=== PATIENT | male | born 1955 | race Caucasian/White ===

== ENCOUNTER 2023-02-18 08:42 | Outpatient (CLI) | payer OTHER | END 2023-02-18 23:59 | disposition home or self-care (01) | LOC: RAD 08:42 | PROVIDERS: ATTEND Family Medicine | DX: S76.311A Strain of muscle, fascia and tendon of the posterior muscle group at thigh level, right thigh, initial encounter (principal); M79.89 Other specified soft tissue disorders; X58.XXXA Exposure to other specified factors, initial encounter; Y93.89 Activity, other specified; Y92.89 Other specified places as the place of occurrence of the external cause; Y99.8 Other external cause status | CPT/HCPCS: 73718 ==

== ENCOUNTER 2023-05-13 08:37 | Outpatient (CLI) | payer OTHER | END 2023-05-13 23:59 | disposition home or self-care (01) | LOC: RAD 08:37 | PROVIDERS: ATTEND Family Medicine Sports Medicine | DX: S76.311A Strain of muscle, fascia and tendon of the posterior muscle group at thigh level, right thigh, initial encounter (principal); M51.16 Intervertebral disc disorders with radiculopathy, lumbar region; M48.07 Spinal stenosis, lumbosacral region; M51.27 Other intervertebral disc displacement, lumbosacral region; M21.379 Foot drop, unspecified foot; X58.XXXA Exposure to other specified factors, initial encounter; Y93.89 Activity, other specified; Y92.89 Other specified places as the place of occurrence of the external cause; Y99.8 Other external cause status | CPT/HCPCS: 72148 ==

== ENCOUNTER 2024-02-13 07:31 | Inpatient (IN) | payer OTHER ==
[~2024-02-13] VITALS: Ht 177.8 cm; Wt 74.8 kg
[2024-02-13 07:54] LABS: RED BLOOD COUNT 3.91 X10'6 (4.70-6.10)
[2024-02-13 07:56] LABS: HEMATOCRIT 35.6 % (42.0-52.0); HEMOGLOBIN 12.6 g/dl (14.0-17.9); MEAN CORPUSCULAR HEMOGLOBIN 32.2 PG (27.0-31.0); MEAN CORPUSCULAR HGB CONC 35.3 g/dL (33.0-36.5); MEAN PLATELET VOLUME 7.5 FL (7.4-10.4); PLATELET COUNT 435 X10'3 (140-440); WHITE BLOOD COUNT 7.9 X10'3 (4.5-11.0)
[2024-02-13 08:10] LABS: ANISOCYTOSIS 1+; PLATELET ESTIMATE NORMAL; TOTAL CELLS COUNTED 100
[2024-02-13 08:15] LABS: ALBUMIN 2.7 G/DL (3.4-5.0); ANION GAP 12 (8-16); BLOOD UREA NITROGEN 25 MG/DL (7-18); CHLORIDE 83 MMOL/L (99-107); PRO BRAIN NATRIURETIC PEPTIDE 92 PG/ML (0-125); TOTAL CARBON DIOXIDE 25.4 MMOL/L (24-32)
[2024-02-13 08:29] LABS: ALANINE AMINOTRANSFERASE 86 U/L (12-78); ALBUMIN/GLOBULIN RATIO 0.7 (1.1-1.5); ALKALINE PHOSPHATASE 292 IU/L (46-116); ASPARTATE AMINO TRANSFERASE 93 U/L (10-37); BUN/CREATININE RATIO 15.2 (10.0-20.0); CREATININE 1.65 MG/DL (0.60-1.10); GLUCOSE 115 MG/DL (70-104); TOTAL PROTEIN 6.8 G/DL (6.4-8.2); eCRCL 45 ML/MIN; eGFR 42 ML/MIN
[2024-02-13 08:34] LABS: SODIUM 120 MMOL/L (135-145)
[2024-02-13] MEDS ORDERED: HYDR12.55 PO (08:49)
[2024-02-13] MEDS ORDERED: LISI40TA13 PO (08:49)
[2024-02-13] MEDS ORDERED: AMLO10TA13 PO (08:49)
[2024-02-13] MEDS: normal saline 1000ml 1,000 ML IV ONE (09:44)
[2024-02-13] MEDS ORDERED: magnesium 2GM in 50ml NS 50 ML IV PRN ×2 (09:50→18:25)
[2024-02-13] MEDS ORDERED: magnesium Cl slow-release 64mg tablet PO PRN ×2 (09:50→18:25)
[2024-02-13] MEDS ORDERED: potassium Cl 20 mEq SR tablet PO PRN ×3 (09:50→18:25)
[2024-02-13] MEDS ORDERED: magnesium 4gm in 100ml NS 100 ML IV PRN ×2 (09:50→18:25)
[2024-02-13] MEDS: normal saline 1000ml 1,000 ML IV STA (09:57)
[2024-02-13 11:11] LABS: MAGNESIUM 2.7 MG/DL (1.5-2.4); PHOSPHORUS 4.1 MG/DL (2.3-4.5)
[2024-02-13] MEDS: potassium Cl 40MEQ/1/2NS 520ml 520 ML IV PRN (11:59)
[2024-02-13 12:10] LABS: URINE AMPHETAMINE SCREEN NEGATIVE (Neg); URINE BARBITUATE SCREEN NEGATIVE (Neg); URINE BENZODIAZEPINES SCREEN NEGATIVE (Neg); URINE CANNABINOID SCREEN NEGATIVE (Neg); URINE COCAINE SCREEN NEGATIVE (Neg); URINE METHADONE SCREEN NEGATIVE (Neg); URINE PHENCYCLIDINE SCREEN NEGATIVE (Neg)
[2024-02-13 12:37] LABS: INR 1.4 INR
[2024-02-13] MEDS: CefTRIAXone 2gm/D5W 50ml BAG 50 ML IV ONE (18:14)
[2024-02-13] MEDS ORDERED: magnesium hydroxide 30ml (MOM) UD suspension PO PRN (18:25)
[2024-02-13] MEDS ORDERED: mag hydrox/Alum hydrox/simeth 30ml oral suspension PO PRN (18:25)
[2024-02-13 19:36] LABS: ALBUMIN 2.2 G/DL (3.4-5.0); ANION GAP 11 (8-16); BLOOD UREA NITROGEN 24 MG/DL (7-18); CALCIUM 8.5 MG/DL (8.5-10.1); CHLORIDE 89 MMOL/L (99-107); SODIUM 123 MMOL/L (135-145); TOTAL CARBON DIOXIDE 23.4 MMOL/L (24-32)
[2024-02-13 19:51] LABS: CREATININE 1.33 MG/DL (0.60-1.10); GLUCOSE 85 MG/DL (70-104); POTASSIUM 3.5 MMOL/L (3.5-5.1); eCRCL 56 ML/MIN; eGFR 54 ML/MIN
[2024-02-13] MEDS: K and/or MAG REPLACEMENT MC SCH ×2 (20:00)
[2024-02-13 21:30] VITALS: BP 114/50; PULSE 64; RESP 18; TEMP 96.8; O2SAT 100
[2024-02-13] MEDS: normal saline 1000ml 1,000 ML IV SCH (22:00)
[2024-02-13 23:36] LABS: ALBUMIN 2.2 G/DL (3.4-5.0); ANION GAP 10 (8-16); BLOOD UREA NITROGEN 24 MG/DL (7-18); CALCIUM 8.4 MG/DL (8.5-10.1); CHLORIDE 91 MMOL/L (99-107); SODIUM 124 MMOL/L (135-145); TOTAL CARBON DIOXIDE 22.9 MMOL/L (24-32)
[2024-02-13 23:43] LABS: BUN/CREATININE RATIO 20.3 (10.0-20.0); CREATININE 1.18 MG/DL (0.60-1.10); GLUCOSE 79 MG/DL (70-104); eCRCL 64 ML/MIN; eGFR 62 ML/MIN
[2024-02-14] VITALS (20 sets, daily range): BP systolic 108–135; BP diastolic 45–71; PULSE 62–87; RESP 12–18; TEMP 96.7–98; O2SAT 95–100
[2024-02-14] MEDS: potassium Cl 40MEQ/1/2NS 520ml 520 ML IV PRN (00:19)
[2024-02-14 07:02] LABS: BASOPHILS % (AUTO) 0.2 % (0-1); EOSINOPHILS # (AUTO) 0.1 X10'3 (0-0.9); EOSINOPHILS % (AUTO) 0.7 % (0-6); HEMATOCRIT 31.6 % (42.0-52.0); HEMOGLOBIN 11.4 g/dl (14.0-17.9); LYMPHOCYTES # (AUTO) 0.4 X10'3 (1.1-4.8); LYMPHOCYTES % (AUTO) 4.5 % (21-51); MEAN CORPUSCULAR HEMOGLOBIN 32.7 PG (27.0-31.0); MEAN CORPUSCULAR VOLUME 90.8 FL (78-98); MEAN PLATELET VOLUME 7.5 FL (7.4-10.4); MONOCYTES # (AUTO) 1.3 X10'3 (0-0.9); MONOCYTES % (AUTO) 16.3 % (2-12); NEUTROPHILS # (AUTO) 6.4 X10'3 (1.8-7.7); NEUTROPHILS % (AUTO) 78.3 % (42-75); PLATELET COUNT 318 X10'3 (140-440); RED BLOOD COUNT 3.48 X10'6 (4.70-6.10); RED CELL DISTRIBUTION WIDTH 17.1 % (11.5-14.5); WHITE BLOOD COUNT 8.1 X10'3 (4.5-11.0)
[2024-02-14 07:13] LABS: APTT 28 SECONDS (22-32); PROTHROMBIN TIME 19.9 SECONDS (9.0-12.0)
[2024-02-14 07:24] LABS: ALBUMIN 2.1 G/DL (3.4-5.0); ALKALINE PHOSPHATASE 232 IU/L (46-116); ANION GAP 8 (8-16); BLOOD UREA NITROGEN 21 MG/DL (7-18); CALCIUM 8.2 MG/DL (8.5-10.1); CHLORIDE 94 MMOL/L (99-107); SODIUM 126 MMOL/L (135-145); TOTAL CARBON DIOXIDE 24.4 MMOL/L (24-32)
[2024-02-14 07:34] LABS: ASPARTATE AMINO TRANSFERASE 96 U/L (10-37)
[2024-02-14 07:38] LABS: ALANINE AMINOTRANSFERASE 70 U/L (12-78); ALBUMIN/GLOBULIN RATIO 0.7 (1.1-1.5); BILIRUBIN,DIRECT 29.5 MG/DL (0-0.3); BILIRUBIN,TOTAL 37.6 MG/DL (0.1-1.0); BUN/CREATININE RATIO 17.6 (10.0-20.0); CREATININE 1.19 MG/DL (0.60-1.10); GLUCOSE 81 MG/DL (70-104); MAGNESIUM 2.4 MG/DL (1.5-2.4); PHOSPHORUS 2.9 MG/DL (2.3-4.5); POTASSIUM 3.7 MMOL/L (3.5-5.1); TOTAL PROTEIN 5.2 G/DL (6.4-8.2); eCRCL 63 ML/MIN; eGFR 61 ML/MIN
[2024-02-14] MEDS ORDERED: GADOTERATE MEGLUMINE 7.5 MMOL/15 ML VIAL IV ONE (10:07)
[2024-02-14 10:21] LABS: ALBUMIN 2.3 G/DL (3.4-5.0); ANION GAP 10 (8-16); BLOOD UREA NITROGEN 20 MG/DL (7-18); BUN/CREATININE RATIO 17.5 (10.0-20.0); CALCIUM 8.6 MG/DL (8.5-10.1); CHLORIDE 92 MMOL/L (99-107); CREATININE 1.14 MG/DL (0.60-1.10); SODIUM 125 MMOL/L (135-145); TOTAL CARBON DIOXIDE 23.2 MMOL/L (24-32); eCRCL 66 ML/MIN; eGFR 64 ML/MIN
[2024-02-14 10:29] LABS: GLUCOSE 86 MG/DL (70-104)
[2024-02-14 10:30] LABS: POTASSIUM 4.2 MMOL/L (3.5-5.1)
[2024-02-14] MEDS ORDERED: iohexol 300 MG/1 ML 50ml polymer ONE (11:49)
[2024-02-14] MEDS ORDERED: MIDAZolam 1 MG/ML 5ML VIAL ONE (12:31)
[2024-02-14] MEDS ORDERED: glucagon, human recombinant 1mg kit ONE ×2 (12:31)
[2024-02-14] MEDS ORDERED: fentaNYL/PF 50MCG/1 ML 2ML syringe ONE (12:31)
[2024-02-14] MEDS ORDERED: LIDOcaine 2% Viscous 15ml cup ONE (12:32)
[2024-02-14] MEDS ORDERED: diphenhydrAMINE 50 mg/ml inj ONE (12:32)
[2024-02-14] MEDS ORDERED: levoFLOXACIN-Levaquin 500mg/D5 100 ML IV ONE (12:37)
[2024-02-14] MEDS ORDERED: iohexol 300mg/ml 100ml inj. ONE (12:57)
[2024-02-14] MEDS ORDERED: fentaNYL/PF 50MCG/1 ML 2ML syringe IV PRN (13:40)
[2024-02-14] MEDS ORDERED: MIDAZolam 1 MG/ML 5ML VIAL IV PRN (13:40)
[2024-02-14] MEDS: normal saline 1000ml 1,000 ML IV SCH (15:48)
[2024-02-14 16:01] LABS: ALBUMIN 2.2 G/DL (3.4-5.0); ANION GAP 10 (8-16); BLOOD UREA NITROGEN 19 MG/DL (7-18); BUN/CREATININE RATIO 17.4 (10.0-20.0); CALCIUM 8.2 MG/DL (8.5-10.1); CHLORIDE 95 MMOL/L (99-107); CREATININE 1.09 MG/DL (0.60-1.10); SODIUM 126 MMOL/L (135-145); TOTAL CARBON DIOXIDE 20.7 MMOL/L (24-32); eCRCL 69 ML/MIN; eGFR 68 ML/MIN
[2024-02-14 16:03] LABS: GLUCOSE 87 MG/DL (70-104); POTASSIUM 3.8 MMOL/L (3.5-5.1)
[2024-02-14] MEDS: simethicone 40mg/0.6ml oral drops 30ml PO ONE (16:29)
[2024-02-14] MEDS: phytonadione inj. 5 MG in normal saline 100ml IV soln 100 ML IV ONE (16:29)
[2024-02-14] MEDS: LIDOcaine 2% Viscous 15ml cup TP ONE (16:30)
[2024-02-14] MEDS ORDERED: morphine 4 MG/ML inj SYRINge IV PRN (19:05)
[2024-02-15 06:53] VITALS: BP 117/49; PULSE 66; RESP 16; TEMP 97.5; O2SAT 100
[2024-02-15 07:18] LABS: APTT 26 SECONDS (22-32); INR 1.2 INR; PROTHROMBIN TIME 13.2 SECONDS (9.0-12.0)
[2024-02-15 07:25] VITALS: RESP 16; O2SAT 98
[2024-02-15 07:29] LABS: BASOPHILS % (AUTO) 0.4 % (0-1); EOSINOPHILS # (AUTO) 0.1 X10'3 (0-0.9); EOSINOPHILS % (AUTO) 0.7 % (0-6); HEMOGLOBIN 11.3 g/dl (14.0-17.9); LYMPHOCYTES # (AUTO) 0.3 X10'3 (1.1-4.8); LYMPHOCYTES % (AUTO) 3.9 % (21-51); MEAN CORPUSCULAR HEMOGLOBIN 32.6 PG (27.0-31.0); MEAN CORPUSCULAR HGB CONC 35.3 g/dL (33.0-36.5); MEAN CORPUSCULAR VOLUME 92.4 FL (78-98); MEAN PLATELET VOLUME 7.4 FL (7.4-10.4); MONOCYTES # (AUTO) 1.4 X10'3 (0-0.9); MONOCYTES % (AUTO) 18.2 % (2-12); NEUTROPHILS # (AUTO) 6.1 X10'3 (1.8-7.7); NEUTROPHILS % (AUTO) 76.8 % (42-75); PLATELET COUNT 265 X10'3 (140-440); RED BLOOD COUNT 3.47 X10'6 (4.70-6.10); RED CELL DISTRIBUTION WIDTH 17.9 % (11.5-14.5); WHITE BLOOD COUNT 7.9 X10'3 (4.5-11.0)
[2024-02-15 07:47] LABS: ALANINE AMINOTRANSFERASE 70 U/L (12-78); ALBUMIN 2.1 G/DL (3.4-5.0); ANION GAP 11 (8-16); BLOOD UREA NITROGEN 17 MG/DL (7-18); BUN/CREATININE RATIO 17.7 (10.0-20.0); CALCIUM 8.4 MG/DL (8.5-10.1); CHLORIDE 96 MMOL/L (99-107); CREATININE 0.96 MG/DL (0.60-1.10); SODIUM 128 MMOL/L (135-145); TOTAL CARBON DIOXIDE 21.2 MMOL/L (24-32); eCRCL 78 ML/MIN; eGFR 78 ML/MIN
[2024-02-15 08:04] LABS: ASPARTATE AMINO TRANSFERASE 67 U/L (10-37)
[2024-02-15 08:16] LABS: ALBUMIN/GLOBULIN RATIO 0.7 (1.1-1.5); BILIRUBIN,TOTAL 37.7 MG/DL (0.1-1.0); GLUCOSE 80 MG/DL (70-104); MAGNESIUM 2.3 MG/DL (1.5-2.4); PHOSPHORUS 2.5 MG/DL (2.3-4.5); POTASSIUM 3.4 MMOL/L (3.5-5.1); TOTAL PROTEIN 5.3 G/DL (6.4-8.2)
[2024-02-15 08:18] LABS: LIPASE 140 U/L (16-77)
[2024-02-15 08:27] LABS: ALKALINE PHOSPHATASE 229 IU/L (46-116)
[2024-02-15 08:50] LABS: ANISOCYTOSIS 1+; PLATELET ESTIMATE NORMAL; TOTAL CELLS COUNTED 100
[2024-02-15 08:51] LABS: TARGET CELLS FEW
[2024-02-15] MEDS: potassium Cl 20 mEq SR tablet PO PRN (11:25)
[2024-02-15 11:28] VITALS: BP 124/66; PULSE 66; RESP 18; TEMP 98.4; O2SAT 100
[2024-02-15] MEDS: lactose-reduced food (Ensure Enlive) - 237ml bottle PO SCH (17:55)
[2024-02-15 18:00] VITALS: BP 117/68; PULSE 67; RESP 16; TEMP 98.4; O2SAT 100
[2024-02-15] MEDS: ondansetron/PF 4mg/2ml inj IV PRN (19:07)
[2024-02-15 20:00] VITALS: RESP 16; O2SAT 98
[2024-02-15 22:00] VITALS: BP 108/61; PULSE 67; RESP 16; TEMP 97.6; O2SAT 100
[2024-02-16 06:00] VITALS: BP 111/60; PULSE 63; RESP 16; TEMP 97.6; O2SAT 100
[2024-02-16 07:04] LABS: APTT 25 SECONDS (22-32); INR 1.2 INR
[2024-02-16 07:27] LABS: ALBUMIN 2.1 G/DL (3.4-5.0); ALKALINE PHOSPHATASE 252 IU/L (46-116); ANION GAP 10 (8-16); BLOOD UREA NITROGEN 14 MG/DL (7-18); CALCIUM 8.7 MG/DL (8.5-10.1); CHLORIDE 100 MMOL/L (99-107); SODIUM 133 MMOL/L (135-145); TOTAL CARBON DIOXIDE 23.5 MMOL/L (24-32)
[2024-02-16 07:35] LABS: BASOPHILS # (AUTO) 0.1 X10'3 (0-0.2); BASOPHILS % (AUTO) 0.9 % (0-1); EOSINOPHILS # (AUTO) 0.1 X10'3 (0-0.9); EOSINOPHILS % (AUTO) 0.9 % (0-6); HEMATOCRIT 32.5 % (42.0-52.0); HEMOGLOBIN 11.4 g/dl (14.0-17.9); LYMPHOCYTES # (AUTO) 0.3 X10'3 (1.1-4.8); LYMPHOCYTES % (AUTO) 4.3 % (21-51); MEAN CORPUSCULAR HEMOGLOBIN 32.9 PG (27.0-31.0); MEAN CORPUSCULAR VOLUME 94.1 FL (78-98); MEAN PLATELET VOLUME 7.5 FL (7.4-10.4); MONOCYTES # (AUTO) 1.2 X10'3 (0-0.9); MONOCYTES % (AUTO) 15.9 % (2-12); NEUTROPHILS # (AUTO) 5.7 X10'3 (1.8-7.7); PLATELET COUNT 251 X10'3 (140-440); RED BLOOD COUNT 3.45 X10'6 (4.70-6.10); RED CELL DISTRIBUTION WIDTH 17.8 % (11.5-14.5); WHITE BLOOD COUNT 7.3 X10'3 (4.5-11.0)
[2024-02-16 07:43] LABS: ALANINE AMINOTRANSFERASE 69 U/L (12-78); ASPARTATE AMINO TRANSFERASE 68 U/L (10-37)
[2024-02-16 07:46] LABS: ALBUMIN/GLOBULIN RATIO 0.7 (1.1-1.5); BILIRUBIN,TOTAL 40.6 MG/DL (0.1-1.0); BUN/CREATININE RATIO 13.9 (10.0-20.0); CREATININE 1.01 MG/DL (0.60-1.10); GLUCOSE 101 MG/DL (70-104); MAGNESIUM 2.3 MG/DL (1.5-2.4); PHOSPHORUS 2.5 MG/DL (2.3-4.5); POTASSIUM 3.6 MMOL/L (3.5-5.1); TOTAL PROTEIN 5.3 G/DL (6.4-8.2); eCRCL 74 ML/MIN; eGFR 74 ML/MIN
[2024-02-16 08:00] VITALS: RESP 18; O2SAT 98
[2024-02-16 11:00] VITALS: BP 128/67; PULSE 63; RESP 18; TEMP 97.3; O2SAT 100
[2024-02-16] MEDS ORDERED: MULT-1142 PO (11:22)
[2024-02-16] MEDS ORDERED: LISI40TA13 PO (11:22)
[2024-02-16] MEDS ORDERED: AMLO10TA13 PO (11:22)
[2024-02-16] MEDS ORDERED: MEGE20TA3 PO (11:22)
== END 2024-02-16 13:15 | disposition home or self-care (01) | DRG 435 ==
LOC: ER 07:31 → ED HOLD 18:32 → ORTHO 4S 21:27
PROVIDERS: ADMIT Family Medicine; ATTEND Family Medicine
PROC: 0F798DZ Dilation of Common Bile Duct with Intraluminal Device, Via Natural or Artificial Opening Endoscopic (ICD-10-PCS; principal; 2024-02-14)
PROC: 0FB78ZX Excision of Common Hepatic Duct, Via Natural or Artificial Opening Endoscopic, Diagnostic (ICD-10-PCS; 2024-02-14)
DX: C22.1 Intrahepatic bile duct carcinoma (principal); K83.1 Obstruction of bile duct; N17.0 Acute kidney failure with tubular necrosis; E87.1 Hypo-osmolality and hyponatremia; R17 Unspecified jaundice; D63.0 Anemia in neoplastic disease; E87.6 Hypokalemia; Z79.899 Other long term (current) drug therapy; Z82.49 Family history of ischemic heart disease and other diseases of the circulatory system
CPT/HCPCS: 36415; 43261; 43262; 43274; 74176; 74183; 80048; 80053; 80076; 80305; 80320; 82140; 83690; 83735; 83880; 84100; 84484; 85007; 85025; 85610; 85730; 87081; 93005; 96365; 96375; 97116; 97161; 97530; 99152; 99153; 99285; A4620; A9575; C1769; G0378; J0696; J1200; J1610; J1956; J2250; J2405; J3010; J3480; J7030; Q9967